=== PATIENT | female | born 1970 | race Caucasian/White ===

== ENCOUNTER 2024-07-14 21:48 | Emergency (ER) | payer OTHER ==
[2024-07-14 21:54] VITALS: BP 158/92; PULSE 54; RESP 20; TEMP 97.4
[2024-07-14] MEDS ORDERED: ACETAMINOPHEN INJECTION 100 ML ONE (22:33)
[2024-07-14] MEDS ORDERED: METOCLOPRAMIDE HCL INJECTION 10 MG/2 ML VIAL ONE (22:33)
[2024-07-14] MEDS: ACETAMINOPHEN 1000 MG/100 ML BAG IVPB ONE (22:54)
[2024-07-14] MEDS: SODIUM CHLORIDE 0.9% 500 ML INFUS.BAG IV ONE (22:54)
[2024-07-14] MEDS: METOCLOPRAMIDE HCL INJECTION 10 MG/2 ML VIAL IVPUSH ONE (22:55)
[2024-07-14 22:58] LABS: BASO % 0.5 % (0-2.0); EOS % 1.4 % (0-4.5); HEMATOCRIT 35.9 % (32.4-45.2); HEMOGLOBIN 12.1 GM/dL (10.7-15.3); LYMPH % 22.2 % (8-40); MCH 29.2 pg (25.7-33.7); MCHC 33.7 g/dl (32.0-36.0); MEAN CELL VOLUME 86.7 fl (80-96); MEAN PLT VOLUME 8.6 fl (7.5-11.1); MONO % 4.9 % (3.8-10.2); PLATELET COUNT 239 10^3/uL (134-434); RBC 4.13 M/mm3 (3.60-5.2); RDW 14.5 % (11.6-15.6); WHITE BLOOD COUNT 5.1 K/mm3 (4.0-10.0)
[2024-07-14] MEDS ORDERED: MECLIZINE HCL 25 MG TABLET (FP) ONE (23:13)
[2024-07-14 23:16] LABS: POTASSIUM 3.7 mmol/L (3.5-5.1)
[2024-07-14] MEDS: MECLIZINE HCL 25 MG TABLET (FP) PO ONE (23:17)
[2024-07-14 23:19] LABS: CALCIUM 9.2 mg/dL (8.5-10.1)
[2024-07-14 23:20] LABS: ALBUMIN 3.6 g/dl (3.4-5.0)
[2024-07-14 23:22] LABS: CREATININE 0.6 mg/dL (0.55-1.3)
[2024-07-14 23:23] LABS: BILIRUBIN,TOTAL 0.6 mg/dL (0.2-1)
[2024-07-14 23:24] LABS: TOT PROT 7.2 g/dl (6.4-8.2)
[2024-07-14 23:49] LABS: EPI CELLS 19 /uL (0-25.1); HYALINE CASTS 1 /uL (0-3.1); URINE APPEARANCE CLEAR; URINE BACTERIA 14 /uL (0-1359); URINE BILIRUBIN NEGATIVE (NEGATIVE); URINE COLOR YELLOW; URINE GLUCOSE (UA) NEGATIVE (NEGATIVE); URINE KETONE NEGATIVE (NEGATIVE); URINE LEUK ESTERASE NEGATIVE (NEGATIVE); URINE NITRITE NEGATIVE (NEGATIVE); URINE PROTEIN 2+ (NEGATIVE); URINE RBC 93 /uL (0-23.9); URINE UROBILINOGEN 0.2 mg/dL (0.2-1.0); URINE WBC 19 /uL (0-25.8)
== END 2024-07-15 00:46 | disposition home or self-care (01) ==
LOC: JER 21:48
PROC: 3E033NZ Introduction of Analgesics, Hypnotics, Sedatives into Peripheral Vein, Percutaneous Approach (ICD-10-PCS; principal; 2024-07-14)
PROC: 3E033GC Introduction of Other Therapeutic Substance into Peripheral Vein, Percutaneous Approach (ICD-10-PCS; 2024-07-14)
DX: R51.9 Headache, unspecified (principal); R42 Dizziness and giddiness; R11.0 Nausea
CPT/HCPCS: 36415; 80053; 81003; 85025; 87077; 87086; 99284-25; J0131